=== PATIENT | male | born 1995 | race Caucasian/White ===

== ENCOUNTER 2016-10-19 17:06 | Inpatient (IN) | payer OTHER ==
[~2016-10-19] VITALS: Ht 182.9 cm; Wt 77.1 kg
[2016-10-19] MEDS ORDERED: ONDANSETRON ODT 4 MG TAB.RAPDIS SL PRN (19:00)
[2016-10-19] MEDS ORDERED: BUPRENORPHINE HCL 2 MG TAB.SUBL SL PRN (19:00)
[2016-10-19] MEDS ORDERED: DICYCLOMINE HCL 20 MG TABLET PO PRN (19:00)
[2016-10-19] MEDS ORDERED: CLONIDINE HCL 0.1 MG TABLET PO PRN (19:00)
[2016-10-19] MEDS ORDERED: MIRALAX 17 GM POWD.PACK PO PRN (19:00)
[2016-10-19] MEDS ORDERED: METHOCARBAMOL 750 MG TABLET PO PRN (19:00)
[2016-10-19] MEDS ORDERED: ONDANSETRON 4 MG/2 ML VIAL IM PRN (19:00)
[2016-10-19] MEDS ORDERED: IBUPROFEN 400 MG TABLET PO PRN (19:00)
[2016-10-19] MEDS ORDERED: LOPERAMIDE HCL 2 MG CAPSULE PO PRN ×2 (19:00)
[2016-10-19] MEDS ORDERED: MAGNESIUM HYDROXIDE 30 ML LIQUID UDC PO PRN (19:00)
[2016-10-19] MEDS ORDERED: diphenhydrAMINE 50 MG CAPSULE PO PRN (19:00)
[2016-10-19] MEDS ORDERED: MAG HYDROX/AL HYDROX/SIMETH 30 ML LIQUID UDC PO PRN (19:00)
[2016-10-19] MEDS ORDERED: ACETAMINOPHEN 325 MG TABLET PO PRN (19:00)
--- NOTE | 2016-10-19 20:00 | NUR ---
Admission note Pt is a 21 yo male, A+Ox4, presenting to [facility] for ETOH/Benzo/Opiate/Marijuana dependence. Pt has allergies to pineapple, is Full Code status, and on Regular diet. Pt is 6'0" in height and 170 LBS in weight. Pt has medical HX of Anxiety, depression, and Insomnia. Pt has family HX from mother of migraines and substance abuse from father. Pt has no Primary Care Provider. Pt has been drinking ETOH for 7 years total but recently for past 3 days, has reached a level of 375ml Vodka/daily, and last drink was 375ml Vodka on 10-19-16 @0000. Pt has been using Xanax for the past 3 days, has reached a level of 4mg-6mg/daily, and last dose was 2mg on 10-19-16 @1000. Pt has been using Heroin IV for 2 years but recently for the past 3 days, has reached a level of 0.5gm/daily, and last dose was 0.5gm on 10-18-16 @2300. Pt has been smoking Marijuana for 6 years but recently for the past 3 days, has reached a level of 1gm/daily, and last dose was 1gm on 10-19-16 @0000. Pt states that he has been taking home medications as follows: Prozac 60mg QD, Wellbutrin 300mg QD, trazodone 100mg QHS PRN, Baclofen 20mg PRN, Vistaril 50mg PRN, and Suboxone 1.5mg QD. Pt has HX of previous detox/Rehab for 60 days @ [facility] in [place] from 2016- September 2016 and continued sobriety for an additional 30 days totaling 90 days. This was the Pt's last time sober. Pt has been a cigarette smoker for 2 months and has reached a level of 3/daily. Pt is stable at this time. No s/s of distress noted at this time. Respirations even and unlabored. Will continue to monitor.
[2016-10-19 20:23] VITALS: BP 127/85
[2016-10-19 20:37] LABS: BASOPHILS # (AUTO) 0.1 K/uL (0.0-0.2); BASOPHILS % (AUTO) 1.1 % (0.0-2.0); EOSINOPHILS # (AUTO) 0.1 K/uL (0.0-0.7); EOSINOPHILS % (AUTO) 1.2 % (0.0-7.0); HEMATOCRIT 46.7 % (40.0-50.0); HEMOGLOBIN 16.4 g/dL (14.0-18.0); LYMPHOCYTES # (AUTO) 2.2 K/uL (0.8-4.8); MEAN CORPUSCULAR HEMOGLOBIN 31.6 uug (27.0-31.0); MEAN CORPUSCULAR HGB CONC 35 g/dL (32.0-37.0); MEAN CORPUSCULAR VOLUME 89.8 fL (82.0-92.0); MONOCYTES # (AUTO) 0.7 K/uL (0.1-1.30); MONOCYTES % (AUTO) 10.6 % (0.0-11.0); NEUTROPHILS # (AUTO) 3.1 K/uL (1.8-8.9); NEUTROPHILS % (AUTO) 52.1 % (38.5-71.5); PLATELET COUNT (AUTO) 275 K/uL (150-450); RED CELL DISTRIBUTION WIDTH 11.9 % (11.5-14.5); WHITE BLOOD COUNT (AUTO) 6.2 K/uL (4.0-11.2)
[2016-10-19 20:48] LABS: ETHANOL < 3 MG/DL (0-0)
[2016-10-19 20:54] LABS: ALANINE AMINOTRANSFERASE 25 U/L (16-63); ALBUMIN 4.5 g/dL (3.4-5.0); ALKALINE PHOSPHATASE 95 U/L (50-136); ASPARTATE AMINOTRANSFERASE 33 U/L (15-37); BILIRUBIN,TOTAL 0.8 mg/dL (0.2-1.0); CALCIUM 9.5 mg/dL (8.5-10.1); CHLORIDE 101 mmol/L (98-107); CREATININE 0.9 mg/dL (0.6-1.3); GFR 105 mL/min (>60); GLUCOSE 92 mg/dL (74-106); MAGNESIUM 2.1 mg/dL (1.8-2.4); POTASSIUM 4.1 mmol/L (3.5-5.1); SODIUM SERUM 139 mmol/L (136-145); TOTAL PROTEIN, SERUM 8.2 g/dL (6.4-8.2); UREA NITROGEN, BLOOD 10 mg/dL (7-18)
[2016-10-19 20:55] LABS: CARBON DIOXIDE 35 mmol/L (21-32)
[2016-10-19 21:16] LABS: THYROID STIMULATING HORMONE 2.096 mIU/mL (0.358-3.740)
[2016-10-19 21:30] LABS: HIV-1 p24 ANTIGEN NON REACTIVE (NONREACTIVE); HIV-1/2 ANTIBODY NON REACTIVE (NONREACTIVE)
[2016-10-19 22:09] LABS: *AMPHETAMINE, URINE NEGATIVE (NEGATIVE); *BARBITURATE, URINE NEGATIVE (NEGATIVE); *CANNABINOID, URINE POSITIVE (NEGATIVE); *COCCAINE, URINE NEGATIVE (NEGATIVE); *OPIATE, URINE POSITIVE (NEGATIVE); *PHENCYCLIDINE SCREEN,URINE NEGATIVE (NEGATIVE)
[2016-10-19] MEDS: HYDROXYZINE PAMOATE 25 MG CAPSULE PO PRN (22:13)
--- NOTE | 2016-10-19 22:13 | NUR ---
PRN Vistaril Pt c/o anxiety and requested for PRN Vistaril. Medication given and tolerated well. Will reassess within 1 HR. Will continue to monitor.
[2016-10-19] MEDS ORDERED: TRAZODONE 50 MG TABLET PO PRN (22:45)
--- NOTE | 2016-10-19 22:51 | NUR ---
PRN Trazodone Pt c/o inability to sleep and requested for PRN Trazodone. Medication given and tolerated well. Will reassess within 1 HR. Will continue to monitor.
[2016-10-19] MEDS ORDERED: BENZ1LOZ30 MM (23:04)
[2016-10-19] MEDS ORDERED: TRAZ-147 PO (23:04)
[2016-10-19] MEDS ORDERED: FLUO-120 PO (23:04)
[2016-10-19] MEDS ORDERED: NALO2AUT IJ (23:04)
[2016-10-19] MEDS ORDERED: HYDR50CA PO (23:04)
--- NOTE | 2016-10-19 23:10 | NUR ---
PRN Vistaril Reassessment Medication effective. Pt shows a decrease in anxiety. no s/s of ASE/distress noted at this time. Respirations even and unlabored. Will continue to monitor.
--- NOTE | 2016-10-19 23:48 | NUR ---
PRN Trazodone Reassessment Medication ineffective. Pt still awake at this time. No s/s of ASE/distress noted at this time. Respirations even and unlabored. Will continue to monitor.
--- NOTE | 2016-10-19 23:57 | NUR ---
RN note PRN Subutex Pt noted to have increasing anxiety and irritability, flushed skin, sweats and tremors. Pulse=94. COWS=13. Administered Subutex 4 mg SL PRN. No SOB noted. Will monitor and reassess.
--- NOTE | 2016-10-20 00:50 | NUR ---
PRN Subutex Reassessment Medication effective. Pt shows a decrease in Anxiety, irritability, sweats and tremors. No s/s of ASE/distress noted at this time. Respirations even and unlabored. Will continue to monitor.
[2016-10-20 00:54] VITALS: BP 125/78
[2016-10-20] MEDS ORDERED: BACL20TA PO (01:39)
[2016-10-20] MEDS ORDERED: BUPR300T52 PO (01:39)
[2016-10-20] MEDS ORDERED: BUPR1FIL SL (01:39)
[2016-10-20 04:13] VITALS: BP 124/82
--- NOTE | 2016-10-20 07:17 | NUR ---
End of shift note Pt is a 21 yo male, A+Ox4, presenting to [facility] for ETOH/Benzo/Opiate/Marijuana dependence. Pt has allergies to pineapple, is Full Code status, and on Regular diet. Pt is 6'0" in height and 170 LBS in weight. Pt has medical HX of Anxiety, depression, and Insomnia. Pt has family HX from mother of migraines and substance abuse from father. Pt has no Primary Care Provider. Pt has been drinking ETOH for 7 years total but recently for past 3 days, has reached a level of 375ml Vodka/daily, and last drink was 375ml Vodka on 10-19-16 @0000. Pt has been using Xanax for the past 3 days, has reached a level of 4mg-6mg/daily, and last dose was 2mg on 10-19-16 @1000. Pt has been using Heroin IV for 2 years but recently for the past 3 days, has reached a level of 0.5gm/daily, and last dose was 0.5gm on 10-18-16 @2300. Pt has been smoking Marijuana for 6 years but recently for the past 3 days, has reached a level of 1gm/daily, and last dose was 1gm on 10-19-16 @0000. Pt states that he has been taking home medications as follows: Prozac 60mg QD, Wellbutrin 300mg QD, trazodone 100mg QHS PRN, Baclofen 20mg PRN, Vistaril 50mg PRN, and Suboxone 1.5mg QD. Pt has HX of previous detox/Rehab for 60 days @ [facility] in [place] from 2016- September 2016 and continued sobriety for an additional 30 days totaling 90 days. This was the Pt's last time sober. Pt has been a cigarette smoker for 2 months and has reached a level of 3/daily. Pt was given PRN Vistaril @2213, PRN Trazodone @2251, and PRN Subutex @2357. Pt slept for a total of 3 HRS. Last COWS: 4 and Last CIWA: 4 @0400. No s/s of distress noted at this time. Respirations even and unlabored. Will endorse to day shift nurse.
--- NOTE | 2016-10-20 07:30 | NUR ---
Start of shift note; Received report from night nurse. Patient is AOX4. Patient is a 21 y/o male admitted on 10/19/16 for ETOH/Benzo/Opiate dependence. Patient reported history of anxiety, depression, insomnia. Patient is allergic to pineapple, patient is on full code status and on a regular diet. Skin is intact. Patient's last COWS score is 4 and last CIWA score is 4 at 0400. All safety measures secured. Will continue to monitor patient.
[2016-10-20 08:00] VITALS: BP 111/72
[2016-10-20] MEDS ORDERED: 3 DAY TAPER BUPRENORPHINE -SERENITY PROTOCOL SL PRN (09:00)
[2016-10-20] MEDS ORDERED: BUPRENORPHINE HCL 2 MG TAB.SUBL SL SCH ×2 (09:00)
[2016-10-20] MEDS ORDERED: MULTIVITAMINS,THERAPEUTIC TABLET PO SCH (09:00)
[2016-10-20] MEDS ORDERED: TUBERCULIN,PURIF.PROT.DERIV. 5 TU/0.1 ML TEST ID ONE (09:00)
[2016-10-20] MEDS ORDERED: LORAZEPAM 2 MG/1 ML VIAL IM PRN (09:00)
[2016-10-20] MEDS ORDERED: LORAZEPAM 1 MG TABLET PO PRN ×2 (09:00)
[2016-10-20] MEDS: MULTIVITAMINS,THERAPEUTIC TABLET PO SCH (09:26)
[2016-10-20] MEDS: DOCUSATE SODIUM 250 MG CAPSULE PO SCH (09:26)
[2016-10-20] MEDS: FOLIC ACID 1 MG TABLET PO SCH (09:26)
[2016-10-20] MEDS: THIAMINE HCL 100 MG TABLET PO SCH (09:26)
[2016-10-20 12:00] VITALS: BP 109/62
[2016-10-20] MEDS: FLUOXETINE HCL 20 MG CAPSULE PO SCH (13:06)
[2016-10-20] MEDS: buPROPion XL 150 MG TAB.SR.24H PO SCH (13:06)
[2016-10-20 16:00] VITALS: BP 113/71
[2016-10-20 17:56] LABS: *AMPHETAMINE, URINE NEGATIVE (NEGATIVE); *BARBITURATE, URINE NEGATIVE (NEGATIVE); *CANNABINOID, URINE POSITIVE (NEGATIVE); *COCCAINE, URINE NEGATIVE (NEGATIVE); *OPIATE, URINE POSITIVE (NEGATIVE); *PHENCYCLIDINE SCREEN,URINE NEGATIVE (NEGATIVE)
--- NOTE | 2016-10-20 18:31 | NUR ---
End of shift note; Patient is AOX4. Patient is a 21 y/o male admitted on 10/19/16 for ETOH/Benzo/Opiate dependence. Patient reported history of anxiety, depression, insomnia. Patient is allergic to pineapple, patient is on full code status and on a regular diet. Skin is intact. Patient's last COWS is 2 and last CIWA is 2 at 1600. Patient is scheduled for discharge tomorrow. All safety measures secured. Patient remained compliant with treatment plan. Met all needs.
--- NOTE | 2016-10-20 19:30 | NUR ---
START OF SHIFT-- Patient is a 21 y/o male admitted on 10/19/16 for ETOH/Benzo/Opiate dependence. A/O X 4, full code, regular diet,allergic to pineapple.PMH of anxiety, depression, insomnia. Skin is intact,warm and dry to touch. Patient's last COWS is 2 and last CIWA is 2 at 1600. Patient is scheduled for discharge tomorrow. All safety measures secured. Patient remains compliant with treatment plan. Bed locked and in lowest position with call light within reach. Will continue to monitor.
[2016-10-20 20:00] VITALS: BP 144/76
[2016-10-20] MEDS ORDERED: TRAZODONE 100 MG TABLET PO SCH (21:00)
[2016-10-20] MEDS: HYDROXYZINE PAMOATE 25 MG CAPSULE PO PRN (21:29)
--- NOTE | 2016-10-20 21:30 | NUR ---
PRN VISTARIL GIVEN ORDERED FOR C/O ANXIETY PER PT REQUEST.WILL MONITOR.
--- NOTE | 2016-10-20 22:30 | NUR ---
PRN F/U-- PRN VISTARIL IS EFFECTIVE.PT VERBALIZES A DECREASE IN ANXIETY.WILL CONTINUE TO MONITOR.
[2016-10-21] VITALS: BP 135/78
[2016-10-21 04:00] VITALS: BP 125/72
[2016-10-21 04:06] LABS: HCV AB 0.1 s/co ratio (0.0-0.9); HEPATITIS B CORE AB, IgM Negative (Negative); HEPATITIS B SURFACE AG Negative (Negative)
--- NOTE | 2016-10-21 06:53 | NUR ---
END OF SHIFT--- Patient is a 21 y/o male admitted on 10/19/16 for ETOH/Benzo/Opiate dependence. A/O X 4, full code, regular diet,allergic to pineapple.PMH of anxiety, depression, insomnia. Skin is intact. Patient's last COWS is 1 and last CIWA is 1 at 0400. Patient is scheduled for discharge today.PRN Vistaril given for c/o anxiety.Pt slept 9 hrs,fluid intake was 237 mls,voided x 1. All safety measures in place. Patient remains compliant with treatment plan. Bed locked in lowest position with call light within reach. Will continue to monitor.
--- NOTE | 2016-10-21 07:33 | NUR ---
START OF SHIFT Received report from dehydrating press operator nurse. 21 year old male patient admitted on 10/19/16 fir ETOH, Benzo and Opiate dependence. Pt is A/O x4. Pt was not on a taper and had only been using for the past 3 days. Pt was only on PRN medications. Allergic to pineapple, full code and regular diet. Pt has hx of anxiety, depression and insomnia. Denies seizure hx. Skin remains warm, dry and intact. PRN Vistaril administered for anxiety and effective. V/S remain WNL throughout shift. Most recent COWS 1 and CIWA 1. Pt is medically cleared for discharge. urine was provided. Pt has home medications. All needs met at this time. Pt is stable. Will continue to monitor.
[2016-10-21 08:11] VITALS: BP 117/78
[2016-10-21] MEDS ORDERED: BUPRENORPHINE HCL 2 MG TAB.SUBL SL SCH ×3 (09:00→15:00)
[2016-10-21] MEDS: FOLIC ACID 1 MG TABLET PO SCH (09:20)
[2016-10-21] MEDS: buPROPion XL 150 MG TAB.SR.24H PO SCH (09:20)
[2016-10-21] MEDS: DOCUSATE SODIUM 250 MG CAPSULE PO SCH (09:20)
[2016-10-21] MEDS: FLUOXETINE HCL 20 MG CAPSULE PO SCH (09:20)
[2016-10-21] MEDS: THIAMINE HCL 100 MG TABLET PO SCH (09:20)
[2016-10-21] MEDS: MULTIVITAMINS,THERAPEUTIC TABLET PO SCH (09:20)
[2016-10-21 13:12] VITALS: BP 115/74
--- NOTE | 2016-10-21 14:08 | NUR ---
D/C NOTE Pt is A/O x4. V/S remain WNL. Pt denies SI/HI or hallucinations. Pt shows no s/s of acute withdrawal at this time, and is stable. has medically cleared pt for d/c. Education on Hepatitis C, smoking cessation and medication side effects provided. Pt verbalizes understanding. All pt belongings are in belonging bag,including home medications. Refuses PNU vaccination. Pt is being accompanied by INSTALLATION & MAINTENANCE EXECUTIVE at this time to be transported to rehab. All needs met.
[2016-10-22] MEDS ORDERED: BUPRENORPHINE HCL 2 MG TAB.SUBL SL SCH ×2 (09:00)
[2016-10-23] MEDS ORDERED: BUPRENORPHINE HCL 2 MG TAB.SUBL SL SCH (09:00)
== END 2016-10-21 14:08 | disposition home or self-care (01) | DRG 895 ==
LOC: SRC 18:38
PROVIDERS: ADMIT Internal Medicine; ATTEND Internal Medicine
PROC: HZ2ZZZZ Detoxification Services for Substance Abuse Treatment (ICD-10-PCS; principal; 2016-10-19)
PROC: HZ31ZZZ Individual Counseling for Substance Abuse Treatment, Behavioral (ICD-10-PCS; 2016-10-20)
DX: F10.230 Alcohol dependence with withdrawal, uncomplicated (principal); F33.2 Major depressive disorder, recurrent severe without psychotic features; F11.23 Opioid dependence with withdrawal; Y90.9 Presence of alcohol in blood, level not specified; F13.10 Sedative, hypnotic or anxiolytic abuse, uncomplicated; Z79.899 Other long term (current) drug therapy; Z81.8 Family history of other mental and behavioral disorders; F17.210 Nicotine dependence, cigarettes, uncomplicated; F41.9 Anxiety disorder, unspecified
CPT/HCPCS: 36415; 71010; 80307; 80349; 80361; 83735; 84443; 85025; 86592; 86705; 86803; 87340; 87806; A4663; G6040-TC